=== PATIENT | male | born 1995 | race American Indian/Alaskan Native ===

== ENCOUNTER 2022-02-19 17:31 | Emergency (ER) | payer SELFPAY | END 2022-02-19 18:26 | disposition left against medical advice (07) | LOC: ED 17:31 | DX: R69 Illness, unspecified (principal); Z53.21 Procedure and treatment not carried out due to patient leaving prior to being seen by health care provider ==

== ENCOUNTER 2022-06-25 08:32 | Emergency (ER) | payer SELFPAY | END 2022-06-25 19:23 | disposition left against medical advice (07) | LOC: ED 08:32 | DX: N50.819 Testicular pain, unspecified (principal); Z53.21 Procedure and treatment not carried out due to patient leaving prior to being seen by health care provider ==